=== PATIENT | male | born 1940 | race Caucasian/White ===

== ENCOUNTER → 2020-11-22 09:47 | Outpatient (BNVA) | payer MEDICARE, SELFPAY | PROVIDERS: PCP Internal Medicine; Visit Provider Internal Medicine Cardiovascular Disease | DX: I25.10 Atherosclerotic heart disease of native coronary artery without angina pectoris (principal); I10 Essential (primary) hypertension | CPT/HCPCS: 93005; 99212 ==

== ENCOUNTER 2020-11-29 09:42 | Outpatient (REF) | payer MEDICARE, SELFPAY ==
[2020-11-29 11:11] LABS: Cholesterol 119 mg/dL; HDL Cholesterol 38 mg/dL; LDL Cholesterol Calculated 66 mg/dl; Triglycerides 76 mg/dL
== END 2020-11-29 09:43 | disposition home or self-care (01) ==
LOC: HO.LAB 09:42
PROVIDERS: PCP Internal Medicine; Visit Provider Internal Medicine Cardiovascular Disease
DX: I25.10 Atherosclerotic heart disease of native coronary artery without angina pectoris (principal)
CPT/HCPCS: 36415; 80061

== ENCOUNTER → 2020-12-06 09:49 | Outpatient (BNVA) | payer MEDICARE, SELFPAY | PROVIDERS: PCP Internal Medicine; Visit Provider Internal Medicine Cardiovascular Disease ==

== ENCOUNTER → 2020-12-30 13:53 | Outpatient (REF) | payer MEDICARE, SELFPAY ==
--- NOTE | 2020-12-30 14:03 | CA_ITS ---
Transthoracic Echocardiogram Patient (Last, First, Middle): Paddy Hampton J Gender: Male Date of : 1940 Age: 80 Procedure Date: 12/30/2020 Procedure Type: Transthoracic Echocardiogram Location: OP Height: 172.72 cm Weight: 86.18 kg BSA: 2.00 m2 Heart Rate: bpm BP: 124 / 68 mmHg Cooker Cleaner: Referring MD: Ant Triana MD Symptoms: R01.1 - Cardiac murmur, unspecified Study Quality: Fair ECG Rhythm: Sinus Conclusions: - The left ventricular systolic function is normal. The visually estimated ejection fraction is between 55-60%. - The basal inferolateral segment is hypokinetic. The basal inferior, mid inferior, and basal inferoseptal segments are akinetic. - There is mild calcification of the aortic valve. - There is mild mitral annular calcification. There is mild mitral valve regurgitation. Findings Procedure Information Contrast agent, definity, is being given per protocol without apparent complications. Left Ventricle Normal left ventricular cavity size. There is mildly increased left ventricular wall thickness. The left ventricular systolic function is normal. The visually estimated ejection fraction is between 55-60%. There is evidence of regional wall motion abnormalities. Diastolic function is indeterminate on the basis of available data. Wall Motion Rest Echo Findings The basal inferolateral segment is hypokinetic. The basal inferior, mid inferior, and basal inferoseptal segments are akinetic. Right Ventricle Normal right ventricular cavity size and systolic function. Atria The left atrium is mildly dilated. The right atrium is normal in size. Aortic Valve There is mild calcification of the aortic valve. There is no aortic valve stenosis. There is no aortic valve regurgitation. Mitral Valve There is mild mitral annular calcification. There is mild mitral valve regurgitation. There is no mitral valve stenosis. Pulmonic Valve The pulmonic valve was not well visualized. Tricuspid Valve Normal tricuspid valve structure. There is trace tricuspid valve regurgitation. The pulmonary artery systolic pressure is normal. Great Vessels The aortic annulus, sinuses of valsalva, and asc aorta are normal in size. Venous The inferior vena cava is normal in size and collapses greater than 50% with inspiration. Pericardium/Pleural There is no evidence of pericardial effusion. Prior Study Comparison No significant change compared to prior study dated: 04/06/2019. Measurements 2D Linear Measurements IVSd: 1.21 0.6-0.9/0.6-1.0 cm LVIDd: 4.79 3.9-5.3/4.2-5.9 cm LVIDd Index: 2.40 2.4-3.2/2.2-3.1 cm/m2 LVIDs: 2.82 2.0-3.6 cm LVPWd: 1.21 0.7-1.1 cm Ao Root: 3.20 2.1-3.5 cm LA Diam: 4.70 2.7-3.8/3.0-4.0 cm LAIDs Index: 2.35 1.5-2.3 cm/m2 LV Mass: 275.50 67-162/88-224 g LV Mass Index: 137.75 43-95/49-115 g/m2 LVOT Diam: 2.00 3.0+(-)1.3 cm 2D Systolic Function EF 4C: 63.40 >55% EF 2C: 54.20 >55% EF BiP: 57.60 >55% Mitral Valve MV Pk E: 0.85 MV PK A: 1.08 MV Decel Time: 254.00 E/A: 0.80 PHT: 74.00 MVA PHT: 2.97 Decel Frio: 3.34 Aortic Valve AoV Pk Randy: 1.71 AoV Mn Randy: 1.17 AoV VTI: 0.36 AoV Pk Grad: 12.00 Aov Mn Grad: 6.00 ANTOINETTE Cont.VTI: 2.13 LVOT LVOT Pk Randy: 1.02 LVOT Mn Randy: 0.73 LVOT VTI: 0.24 LVOT Pk Grad: 4.00 LVOT Mn Grad: 2.00 LVOT Diam: 2.00 LVOT Area: 3.14 Diastolic Function MV Pk E: 0.85 MV Pk A: 1.08 E/A: 0.80 Tricuspid Valve TR Pk Randy: 1.82 TR Pk Grad: 13.00 RA Press: 3.00 RVSP: 16.00 Great Vessels Aorta Ao Root-2D: 3.20 2.0-3.7 cm Ao Asc: 3.50 2.1-3.4 cm Pulmonary Valve PV Pk Randy: 1.06 Peak PV Grad: 4.00 Updated in Other Vendor System with Status of Final Eben Colon MD electronically signed on 12/31/2020 9:37:52 AM with status of Final
== END ==
LOC: HO.CARD 13:53
PROVIDERS: PCP Physician Assistant; Visit Provider Internal Medicine Cardiovascular Disease
DX: R01.1 Cardiac murmur, unspecified (principal); I25.10 Atherosclerotic heart disease of native coronary artery without angina pectoris; I10 Essential (primary) hypertension
CPT/HCPCS: 93306; Q9957

== ENCOUNTER 2021-09-20 11:18 | Outpatient (REF) | payer MEDICARE, SELFPAY ==
[2021-09-20 12:16] LABS: Anion Gap 11 (12-20); Blood Urea Nitrogen 9 mg/dL (9-16); Carbon Dioxide 24 mmol/L (22-29); Chloride 108 mmol/L (96-108); Estimated Glomerular Filt Rate > 60; Glucose Fasting 100 mg/dL (60-99); Potassium 3.9 mmol/L (3.3-5.1); Sodium 139 mmol/L (135-145)
== END 2021-09-20 11:19 | disposition home or self-care (01) ==
LOC: HO.LAB 11:18
PROVIDERS: PCP Internal Medicine; Visit Provider Nurse Practitioner Family
DX: Z13.1 Encounter for screening for diabetes mellitus (principal)
CPT/HCPCS: 36415; 80048

== ENCOUNTER → 2021-11-23 10:11 | Outpatient (BNVA) | payer MEDICARE, SELFPAY | PROVIDERS: PCP Internal Medicine; Referring Provider Internal Medicine; Visit Provider Internal Medicine Cardiovascular Disease | DX: I25.10 Atherosclerotic heart disease of native coronary artery without angina pectoris (principal); R07.2 Precordial pain | CPT/HCPCS: 93005; 99212 ==

== ENCOUNTER → 2021-12-14 08:50 | Outpatient (REF) | payer MEDICARE, SELFPAY ==
--- NOTE | ~2021-12-14 | NM_ITS ---
Myocardial perfusion study Indication: Precordial chest pain to evaluate for myocardial ischemia Technique: The patient was brought in for a Lexiscan perfusion study on 12/14/2021. Patient performed low-level exercise and was injected 0.4 mg of Lexiscan intravenously. Within a minute of injection, 30 mCi of sestamibi was given intravenously. Images were obtained using the SPECT gamma camera interlaced with the gating device. Images were obtained in supine position. Resting perfusion study was performed on 12/15/2021. Patient was administered 30 mCi of sestamibi intravenously at rest. Images were then obtained in supine position. Images obtained with and without CT attenuation. Total DLP 113 mGy-cm. Images were processed with the software and compared side to side in short axis, horizontal long axis and vertical long axis views. Findings: The stress perfusion study showed non attenuated images show moderately reduced uptake in the distal anterior and mildly to moderately reduced uptake in the apex. Remainder of the LV myocardium is normally perfused. Attenuated corrected images show moderately reduced uptake in the distal anterior and apex of LV myocardium.. The gated study shows normal LV systolic function with calculated LVEF of 55%. LV cavity is mildly dilated size. The gated study shows normal systolic wall thickening and contraction of segments. Resting study shows improved uptake in the distal anterior and apex of the LV myocardium.. Gating at rest reveals normal systolic wall motion with ejection fraction at 57%. The findings are consistent with mild reversibility in the distal. NM/NM rosemary perf SPECT rest & str Impression: 1. Myocardial perfusion imaging study shows small area of mild intensity distal anterior ischemia in distal LAD territory 2. Gated LVEF is 55% 3. Transient ischemic dilatation present and mild EKG is nondiagnostic for ischemia
--- NOTE | 2021-12-14 08:53 | CA_ITS ---
Acquisition Time: 2021-12-14 09:06:56 Total Exercise Time: 00:02:00 Test Indications: CP Medications: SEE CHART Protocol: LEXISCAN Max HR: 080 BPM 57% of Pred: 140 BPM Max BP: 168/070 mmHG Max Work Load: 1.0 METS Pharmacological stress test with Lexiscan injection, while sitting and kicking his legs, without anginal symptoms, with isolated PVCs, with normotensive response to injection, with nondiagnostic EKG for ischemia. In recovery he reported feeling foggy in the head which was treated with Aminophylline 75mg IVP to reverse Lexiscan with resolution of symptom. Nuclear images pending. Test reviewed with Dr Toledo Referred By: Ant Triana Overread By: CROW NGUYEN
== END ==
LOC: HO.CARD 08:50
PROVIDERS: Visit Provider Internal Medicine Cardiovascular Disease
DX: R07.2 Precordial pain (principal); I25.10 Atherosclerotic heart disease of native coronary artery without angina pectoris
CPT/HCPCS: 78452; 93017; A9500; J0280; J2785

== ENCOUNTER 2021-12-27 09:24 | Outpatient (REF) | payer MEDICARE, SELFPAY ==
[2021-12-27 10:19] LABS: Hematocrit 39.9 % (42.0-52.0); Mean Corpuscular HGB Conc 35.1 g/dl (31.0-36.0); Mean Corpuscular Hemoglobin 34.1 pg (27.0-33.0); Mean Corpuscular Volume 97.3 fL (80.0-98.0); Platelet Count 119 X10*3/uL (160-400); Red Cell Distribution Width 13.5 % (11.0-16.0)
[2021-12-27 11:00] LABS: Appearance Urine CLEAR; Color Urine YELLOW; Glucose Urine UA NEG (NEG); Leukocyte Esterase Urine NEG (NEG); Nitrite Urine NEG (NEG); Urine Blood TRACE (NEG); Urine Ketones NEG (NEG); Urine Protein NEG (NEG-TRACE)
[2021-12-27 11:05] LABS: Alanine Aminotransferase 15 U/L (0-40); Albumin Level 3.9 g/dL (3.5-5.0); Alkaline Phosphatase 70 U/L (39-117); Anion Gap 10 (12-20); Aspartate Amino Transferase 28 U/L (5-37); Bilirubin Direct 0.5 mg/dL (0.0-0.5); Bilirubin Total 1.2 mg/dL (0.0-1.0); Blood Urea Nitrogen 14 mg/dL (9-16); Carbon Dioxide 25 mmol/L (22-29); Chloride 107 mmol/L (96-108); Cholesterol 150 mg/dL; Estimated Glomerular Filt Rate > 60; Glucose Random 97 mg/dL (60-115); HDL Cholesterol 56 mg/dL; LDL Cholesterol Calculated 82 mg/dl; Potassium 3.9 mmol/L (3.3-5.1); Sodium 138 mmol/L (135-145); Total Protein 7.7 g/dL (6.5-8.0); Triglycerides 61 mg/dL
[2021-12-27 11:11] LABS: Thyroid Stimulating Hormone 3.15 uIU/mL (0.32-4.0)
[2021-12-27 11:20] LABS: Mucus Urine 1+ /LPF; Squamous Epithelial Cell Urine 1+ /LPF
[2021-12-27 11:21] LABS: RBC Urine 0-2 /HPF (0); WBC Urine 0 /HPF (0-4)
== END 2021-12-27 09:25 | disposition home or self-care (01) ==
LOC: HO.LAB 09:24
PROVIDERS: Internal Medicine Cardiovascular Disease; PCP Internal Medicine; Visit Provider Internal Medicine
DX: I25.10 Atherosclerotic heart disease of native coronary artery without angina pectoris (principal); I10 Essential (primary) hypertension
CPT/HCPCS: 36415; 80048; 80061; 80076; 81001; 81003; 84443; 85027

== ENCOUNTER → 2022-01-05 10:20 | Outpatient (BNVA) | payer MEDICARE, SELFPAY | PROVIDERS: PCP Internal Medicine; Visit Provider Internal Medicine Cardiovascular Disease | DX: I25.10 Atherosclerotic heart disease of native coronary artery without angina pectoris (principal); I25.2 Old myocardial infarction; Z79.82 Long term (current) use of aspirin; Z79.899 Other long term (current) drug therapy | CPT/HCPCS: 99212 ==

== ENCOUNTER 2022-11-07 14:33 | Outpatient (REF) | payer MEDICARE, SELFPAY ==
[2022-11-07 15:51] LABS: Estimated Average Glucose 82 mg/dL; Hemoglobin 13.5 g/dl (14.0-18.0); Hemoglobin A1c % 4.5 %; Mean Corpuscular HGB Conc 34.6 g/dl (31.0-36.0); Mean Corpuscular Hemoglobin 33.8 pg (27.0-33.0); Mean Corpuscular Volume 97.5 fL (80.0-98.0); Mean Platelet Volume 9.3 fL (9.4-12.4); Platelet Count 126 X10*3/uL (160-400); Red Cell Distribution Width 13.7 % (11.0-16.0); White Blood Count 6.6 X10*3/uL (4.8-10.8)
[2022-11-07 16:21] LABS: Alanine Aminotransferase 17 U/L (0-40); Albumin Level 3.8 g/dL (3.5-5.0); Alkaline Phosphatase 70 U/L (39-117); Anion Gap 14 (12-20); Aspartate Amino Transferase 29 U/L (5-37); Bilirubin Direct 0.5 mg/dL (0.0-0.5); Bilirubin Total 1.5 mg/dL (0.0-1.0); Blood Urea Nitrogen 12 mg/dL (9-16); Calcium 8.9 mg/dL (8.4-10.2); Carbon Dioxide 26 mmol/L (22-29); Chloride 107 mmol/L (96-108); Cholesterol 151 mg/dL; Estimated Glomerular Filt Rate > 60; Glucose Random 118 mg/dL (60-115); HDL Cholesterol 60 mg/dL; LDL Cholesterol Calculated 76 mg/dl; Potassium 3.8 mmol/L (3.3-5.1); Sodium 143 mmol/L (135-145); Total Protein 7.4 g/dL (6.5-8.0); Triglycerides 78 mg/dL
[2022-11-07 16:37] LABS: Thyroid Stimulating Hormone 1.95 uIU/mL (0.32-4.0)
== END 2022-11-07 14:34 | disposition home or self-care (01) ==
LOC: HO.LAB 14:33
PROVIDERS: PCP Internal Medicine; Visit Provider Internal Medicine
DX: Z13.1 Encounter for screening for diabetes mellitus (principal); I10 Essential (primary) hypertension; I25.10 Atherosclerotic heart disease of native coronary artery without angina pectoris
CPT/HCPCS: 36415; 80048; 80061; 80076; 83036; 84443; 85027

== ENCOUNTER → 2022-11-26 10:22 | Outpatient (BNVA) | payer MEDICARE, SELFPAY | PROVIDERS: PCP Internal Medicine; Referring Provider Internal Medicine; Visit Provider Internal Medicine Cardiovascular Disease | DX: I25.10 Atherosclerotic heart disease of native coronary artery without angina pectoris (principal); I10 Essential (primary) hypertension | CPT/HCPCS: 93005; 99212 ==

== ENCOUNTER 2023-05-02 09:47 | Outpatient (AMB) | payer MEDICARE, SELFPAY ==
--- NOTE | 2023-05-02 10:01 | MHC.PC.OV ---
Vital Signs 05/02/23 10:02 Height 5 ft 7 in Weight 192 lb 6 oz BMI 30.1 BP 140/70 H Blood Pressure Location Lt brachial Position Sitting Pulse 67 Pulse Source Pulse Oximeter Pulse Oximetry (%) 94 Oxygen Delivery Method Room Air Intake Visit Reasons: 6mth f/u Intake Note: Patient is here to follow up on CAD, HTN. Recreation Establishment Manager Required: No Office Copy Selector: Not Required per policy Accompanied by: Self / Same As Patient Allergies Penicillins [PENICILLINS] Adverse Reaction (Unknown, Verified 05/19/23 20:10) STOMACH UPSET Medication List - Last Reconciled 05/19/23 by Moses Felton MD amlodipine 2.5 mg PO DAILY aspirin 81 mg PO DAILY atorvastatin 20 mg PO DAILY enalapril maleate 10 mg PO DAILY hydrochlorothiazide 25 mg PO QAM Tobacco use date assessed: 05/02/23 Fall risk assessment: No Falls in past year Last assessed Fall Risk: 05/02/23 Dental Screening Dental Screen Date: 05/02/23 Did you have a dental visit in the last 12 months?: Yes Did you have a dental problem in the last 6 months where you did not have access to dental care?: No Was dental information given to patient?: Patient has dentist HPI 6mth f/u HPI Details 83-year-old male presents to the office to discuss his medical conditions. Patient is reporting he is in baseline state of health. Compliant with all medications and reporting no side effects. Able to function and do all activities of daily living [facility] Medical History CAD (coronary artery disease) Essential (primary) hypertension Screening for diabetes mellitus Surgical History History of colonoscopy Stented coronary artery Family History Father No problems noted. Mother Hypertension Social History Housing: House Alcohol intake: current Alcohol intake frequency: holidays/special occasions only Patient Tobacco Use Status: Former Tobacco user e-Cigarette/Vaping Use: Never Used Second Hand Smoke Exposure: Yes service: No Current occupational status: retired Cognitive needs: Yes (cane) Hearing needs: No Vision needs: Yes (Glasses) Questionnaire Thrive Questionnaire Date Thrive assessed: 10/30/22 RODRIGO-7 AMB Questionnaire RODRIGO-7 Date RODRIGO - 7 assessed: 10/30/22 Source: Developed by Drs. Balta Goff, Eboni Molian, Segundo Quezada and colleagues, with an educational eric from [employer]. Physical exam (Primary Care) Vital Signs: Last Vital Signs Pulse 67 05/02/23 10:02 BP 140/70 H 05/02/23 10:02 Pulse Ox 94 05/02/23 10:02 Oxygen Delivery Method Room Air 05/02/23 10:02 BMI result Body Mass Index 30.1 Tobacco/Smoking Status: Tobacco use Status Tobacco use date assessed 05/02/23 05/02/23 10:08 Patient Tobacco Use Status Former Tobacco user 05/02/23 10:08 e-Cigarette/Vaping Use Never Used 05/02/23 10:08 Thrive Assessment: Date of Thrive Assessment Date Thrive assessed 10/30/22 05/02/23 10:08 Const General: cooperative, healthy appearing and comfortable HENMT Head: Yes normal to inspection and Yes atraumatic Eyes General: appearance normal, both eyes and all related structures Neck Neck: Yes normal visual inspection and Yes full ROM Chest Chest palpation & inspection: normal inspection of the chest Resp Effort & Inspection: normal respiratory effort Auscultation: clear to auscultation bilaterally Cardio Jugular venous distension: no JVD Palpation: normal PMI Rate: regular rate Heart sounds: S1 normal heart sound present and S2 normal heart sound present GI Palpation (GI): Soft to palpation and No hepatosplenomegaly present Extrem General: Yes normal to inspection and Yes full ROM Assessment and Plan Assessment & Plan (1) CAD (coronary artery disease): Code(s): I25.10 - Atherosclerotic heart disease of [place] coronary artery without angina pectoris Plan: Condition is stable. Continue current medications. (2) Essential (primary) hypertension: Code(s): I10 - Essential (primary) hypertension Plan: Blood pressure is stable. 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 Coding Level of Care Code Est Pt Level 3 (93959) Diagnoses CAD (coronary artery disease) I25.10 Essential (primary) hypertension I10 Myeloid dysplasia D46.9
[2023-05-02 10:02] VITALS: BP 140/70; PULSE 67; O2SAT 94; BMI 30.1
== END 2023-05-02 10:35 | disposition home or self-care (01) ==
PROVIDERS: PCP Internal Medicine; Visit Provider Internal Medicine
DX: I25.10 Atherosclerotic heart disease of native coronary artery without angina pectoris (principal); I10 Essential (primary) hypertension; D46.9 Myelodysplastic syndrome, unspecified
CPT/HCPCS: 99213

== ENCOUNTER 2023-11-07 09:44 | Outpatient (AMB) | payer MEDICARE, SELFPAY ==
--- NOTE | 2023-11-07 09:49 | A.OFFPC_ITS ---
Vital Signs 11/07/23 09:52 Height 5 ft 7 in Weight 189 lb BMI 29.6 BP 120/62 Blood Pressure Location Lt brachial Position Sitting Pulse 67 Pulse Source Pulse Oximeter Pulse Oximetry (%) 97 Oxygen Delivery Method Room Air Intake Visit Reasons: 6mth f/u - see comments Intake Note: Patient is here to follow up on CAD, HTN. Manager Test Required: No Pediatric Physical Therapy Assistant: Not Required per policy Accompanied by: Self / Same As Patient Allergies Penicillins [PENICILLINS] Adverse Reaction (Unknown, Verified 11/07/23 09:51) STOMACH UPSET Tobacco use date assessed: 11/07/23 Fall risk assessment: No Falls in past year Last assessed Fall Risk: 11/07/23 Dental Screening Dental Screen Date: 11/07/23 Did you have a dental visit in the last 12 months?: Yes Did you have a dental problem in the last 6 months where you did not have access to dental care?: No Was dental information given to patient?: Patient has dentist HPI 6mth f/u - see comments HPI Details 83 yr old male presents to the office fo r an annual physical. Patient lives with his and son. He is able to live independently and drive. Requesting refills on his medications. Continues to do all the finances at home. No urinary symptoms. [facility] Medical History CAD (coronary artery disease) Essential (primary) hypertension Screening for diabetes mellitus Surgical History History of colonoscopy Stented coronary artery Family History Father No problems noted. Mother Hypertension Social History Housing: House Alcohol intake: current Alcohol intake frequency: holidays/special occasions only Patient Tobacco Use Status: Former Tobacco user e-Cigarette/Vaping Use: Never Used Second Hand Smoke Exposure: Yes service: No Current occupational status: retired Cognitive needs: Yes (cane) Hearing needs: No Vision needs: Yes (Glasses) Questionnaire PHQ-9 Over the last 2 weeks, how often have you been bothered by any of the following problems? 1. Little interest or pleasure in doing things: not at all 2. Feeling down, depressed, or hopeless: not at all 3. Trouble falling or staying asleep, or sleeping too much: not at all 4. Feeling tired or having little energy: not at all 5. Poor appetite or overeating: not at all 6. Feeling bad about yourself - or that you are a failure or have let yourself or your family down: not at all 7. Trouble concentrating on things, such as reading the newspaper or watching television: not at all 8. Moving or speaking so slowly that other people could have noticed. Or the opposite - being so fidgety or restless that you have been moving around a lot more than usual: not at all 9. Thoughts that you would be better off or of hurting yourself in some way: not at all Total score: 0 Depression Screening Interpretation: Negative Depression Screening Done: Yes Source: Developed by Drs. Balta Goff, Eboni Molina, Segundo Quezada and colleagues, with an educational eric from [employer]. Thrive Questionnaire Date Thrive assessed: 11/07/23 I am a: Patient What is your living situation today?: I have a steady place to live Within the past 12 months, did the food you bought not last and you didn't have the money to get more?: Never true Within the past 12 months, did you worry whether your food would run out before you got money to buy more?: Never true Do you have trouble paying for medicines?: No Do you have trouble getting transportation to medical appointments?: No Do you have trouble paying your heating and electricity bill?: No Do you have trouble taking care of your child, family member or friend?: No Do you have trouble with day-to-day activities such as bathing, preparing meals, shopping, managing finances, etc.?: No Are you currently unemployed and looking for a job?: No Are you interested in more education?: No Currently or been in a relationship where the following occur: no concerns reported THRIVE Score: 0 AUDIT C Alcohol Use Questionnaire (AUDIT-C) 1. How often do you have a drink containing alcohol?: Monthly or less 2. How many drinks containing alcohol do you have on a typical day when you are drinking?: 1 or 2 Total Score: 1 RODRIGO-7 AMB Questionnaire RODRIGO-7 Date RODRIGO - 7 assessed: 11/07/23 Feeling nervous, anxious, or on edge: 0 = Not at all Not being able to stop or control worryin = Not at all Worrying too much about different things: 0 = Not at all Trouble relaxin = Not at all Being so restless that it is hard to sit still: 0 = Not at all Becoming easily annoyed or irritable: 0 = Not at all Feeling afraid as if something awful might happen: 0 = Not at all Total RODRIGO-7 score (0-4 normal; 5-9 mild; 10-14 moderate; 15-21 severe): 0 Source: Developed by Drs. Balta Goff, Eboni Molina, Segundo Quezada and colleagues, with an educational eric from [employer]. Physical exam (Primary Care) Vital Signs: Last Vital Signs Pulse 67 11/07/23 09:52 BP 120/62 11/07/23 09:52 Pulse Ox 97 11/07/23 09:52 Oxygen Delivery Method Room Air 11/07/23 09:52 BMI result Body Mass Index 29.6 Tobacco/Smoking Status: Tobacco use Status Tobacco use date assessed 11/07/23 11/07/23 09:56 Patient Tobacco Use Status Former Tobacco user 11/07/23 09:56 e-Cigarette/Vaping Use Never Used 11/07/23 09:56 PHQ-9: PHQ-9 Score PHQ-9: Total score 0 11/07/23 09:56 Depression Screening Interpretation: Negative Thrive Assessment: Date of Thrive Assessment Date Thrive assessed 11/07/23 11/07/23 09:56 Currently or been in a relationship where the following occur: no concerns reported Advance Care Planning discussion: Exists, not on file Date of discussion: 11/07/23 Who was present: Patient Forms completed: Health Care Proxy Actual minutes spent: 5 Const General: cooperative and healthy appearing Nutritional Appearance: well nourished Orientation/consciousness: patient oriented x3 Limitations: no limitations HENMT Head: Yes normal to inspection Eyes General: appearance normal, both eyes and all related structures Neck Neck: Yes normal visual inspection Chest Chest palpation & inspection: normal palpation of entire chest wall Resp Effort & Inspection: normal respiratory effort Neuro General: patient oriented x3 Assessment and Plan Assessment & Plan (1) Myeloid dysplasia: Code(s): D46.9 - Myelodysplastic syndrome, unspecified Plan: Patient sees a student loan counselor. (2) CAD (coronary artery disease): Code(s): I25.10 - Atherosclerotic heart disease of [place] coronary artery without angina pectoris Plan: Condition is stable. (3) Essential (primary) hypertension: Code(s): I10 - Essential (primary) hypertension Plan: Blood pressure is in range. Continue current medications. (4) Annual physical exam: Code(s): Z00.00 - Encounter for general adult medical examination without abnormal findings Orders: Orders Liver Panel Today D46.9 - Myelodysplastic syndrome, unspecified, I10 - Essential (primary) hypertension, I25.10 - Atherosclerotic heart disease of [place] coronary artery without angina pectoris UA and rflx microscopic Today D46.9 - Myelodysplastic syndrome, unspecified, I10 - Essential (primary) hypertension, I25.10 - Atherosclerotic heart disease of [place] coronary artery without angina pectoris Basic Metabolic Panel Today D46.9 - Myelodysplastic syndrome, unspecified, I10 - Essential (primary) hypertension, I25.10 - Atherosclerotic heart disease of [place] coronary artery without angina pectoris Complete Blood Count no Diff Today D46.9 - Myelodysplastic syndrome, unspecified, I10 - Essential (primary) hypertension, I25.10 - Atherosclerotic heart disease of [place] coronary artery without angina pectoris Thyroid Stimulating Hormone Today D46.9 - Myelodysplastic syndrome, unspecified, I10 - Essential (primary) hypertension, I25.10 - Atherosclerotic heart disease of [place] coronary artery without angina pectoris Lipid Panel Today D46.9 - Myelodysplastic syndrome, unspecified, I10 - Essential (primary) hypertension, I25.10 - Atherosclerotic heart disease of [place] coronary artery without angina pectoris Medications: Refilled enalapril maleate 10 mg PO DAILY 90 tabs 1RF Coding Level of Care Code Est Pt Prev Care >65y(29938) Diagnoses Myeloid dysplasia D46.9 CAD (coronary artery disease) I25.10 Essential (primary) hypertension I10 Annual physical exam Z00.00 Additional Codes Vital Signs *Quality* - Advance Care Planning discussion: Exists, not on file ([id number])
[2023-11-07 09:52] VITALS: BP 120/62; PULSE 67; O2SAT 97; BMI 29.6
== END 2023-11-07 10:27 | disposition home or self-care (01) ==
PROVIDERS: PCP Internal Medicine; Visit Provider Internal Medicine
DX: D46.9 Myelodysplastic syndrome, unspecified (principal); I25.10 Atherosclerotic heart disease of native coronary artery without angina pectoris; I10 Essential (primary) hypertension; Z00.00 Encounter for general adult medical examination without abnormal findings
CPT/HCPCS: 1123F; 99397

== ENCOUNTER 2023-11-08 12:08 | Outpatient (REF) | payer MEDICARE, SELFPAY ==
[2023-11-08 13:28] LABS: Hematocrit 37.2 % (42.0-52.0); Hemoglobin 13.1 g/dl (14.0-18.0); Mean Corpuscular HGB Conc 35.2 g/dl (31.0-36.0); Mean Corpuscular Hemoglobin 33.7 pg (27.0-33.0); Mean Corpuscular Volume 95.6 fL (80.0-98.0); Mean Platelet Volume 9.1 fL (9.4-12.4); Platelet Count 109 X10*3/uL (160-400); Red Blood Count 3.89 X10*6/uL (4.60-5.80); Red Cell Distribution Width 13.9 % (11.0-16.0); White Blood Count 4.6 X10*3/uL (4.8-10.8)
[2023-11-08 14:12] LABS: Alanine Aminotransferase 19 U/L (0-40); Albumin Level 3.8 g/dL (3.5-5.0); Alkaline Phosphatase 75 U/L (39-117); Anion Gap 10 (12-20); Aspartate Amino Transferase 34 U/L (5-37); Bilirubin Direct 0.5 mg/dL (0.0-0.5); Bilirubin Total 1.4 mg/dL (0.0-1.0); Blood Urea Nitrogen 10 mg/dL (9-16); Calcium 9.1 mg/dL (8.4-10.2); Carbon Dioxide 27 mmol/L (22-29); Chloride 108 mmol/L (96-108); Cholesterol 128 mg/dL (<200); Estimated Glomerular Filt Rate > 60; Glucose Random 109 mg/dL (60-115); HDL Cholesterol 61 mg/dL (>40); LDL Cholesterol Calculated 56 mg/dL (<100); Potassium 3.8 mmol/L (3.3-5.1); Sodium 141 mmol/L (135-145); Total Protein 7.5 g/dL (6.5-8.0); Triglycerides 59 mg/dL (<150)
[2023-11-08 14:13] LABS: Thyroid Stimulating Hormone 2.13 uIU/mL (0.32-4.0)
[2023-11-08 18:21] LABS: Appearance Urine Clear; Color Urine Yellow; Glucose Urine UA Negative (Negative); Leukocyte Esterase Urine Small (1+) (Negative); Nitrite Urine Negative (Negative); Specific Gravity - Urine 1.015 (1.005-1.025); UMIC TRIGGER UA YES; Urine Blood Negative (Negative); Urine Ketones Negative (Negative); Urine Protein Negative (Neg-Trace)
[2023-11-08 19:00] LABS: Bacteria Urine None Seen (None Seen); Hyaline Casts Urine 0-2 /LPF (0-2); RBC Urine 0-2 /HPF (0-2); Squamous Epithelial Cell Urine 0-2 /HPF (0-2); WBC Urine 0-5 /HPF (0-5)
== END 2023-11-08 12:09 | disposition home or self-care (01) ==
LOC: HO.LAB 12:08
PROVIDERS: PCP Internal Medicine; Visit Provider Internal Medicine
DX: D64.9 Anemia, unspecified (principal); I25.10 Atherosclerotic heart disease of native coronary artery without angina pectoris; I10 Essential (primary) hypertension
CPT/HCPCS: 36415; 80048; 80061; 80076; 81001; 84443; 85027

== ENCOUNTER → 2023-11-12 12:46 | Outpatient (REF) | payer MEDICARE, SELFPAY ==
--- NOTE | 2023-11-12 12:49 | CA_ITS ---
Transthoracic Echocardiogram Patient (Last, First, Middle): Paddy Hampton J Gender: Male Date of : 1940 Age: 83 Procedure Date: 11/12/2023 Procedure Type: Transthoracic Echocardiogram Location: OP Height: 172.72 cm Weight: 86.18 kg BSA: 2.00 m2 Heart Rate: bpm BP: 140 / 60 mmHg Loom Changeover Operator: TO Referring MD: Ant Triana MD Medical Transcription: Ant Triana MD Symptoms: I25.10 - Atherosclerotic heart disease of [place] coronary artery without... Study Quality: Fair/Contrast ECG Rhythm: Sinus Conclusions: - 1. Normal LV ejection fraction 55-60% with impaired relaxation filling pattern 2. Mildly dilated left atrium 3. Calcific aortic valve changes noted with early mild aortic stenosis 4. Mildly dilated ascending aorta at 3.7 cm 5. No gross pericardial effusion Findings Left Ventricle Normal left ventricular size, thickness, and systolic function. The visually estimated ejection fraction is between 55-60%. Spectral Doppler is indicative of an impaired relaxation filling pattern. There is mild septal asymmetric hypertrophy. Wall Motion Rest Echo Findings The basal inferior and basal inferoseptal segments are akinetic. All other scored wall segments showed normal motion. Right Ventricle The right ventricle was not well visualized. Atria The left atrium is mildly dilated. There is no evidence of interatrial shunt. The right atrium was not well visualized. Aortic Valve There is mild calcification of the aortic valve. There is no aortic valve stenosis. The peak aortic gradient is 15 mmHg.The mean gradient is 7 mmHg. The aortic valve area is 2.31 cm2. There is no aortic valve regurgitation. Mitral Valve There is mild anterior and posterior mitral leaflet thickening. There is mild mitral annular calcification. There is trace mitral valve regurgitation. There is no mitral valve stenosis. Pulmonic Valve The pulmonic valve is likely normal. Tricuspid Valve Likely normal tricuspid valve structure and function. Tricuspid regurgitation envelope is inadequate for calculation of right ventricular systolic pressure. Great Vessels The pulmonary artery was not well visualized. There is mild dilatation of the ascending aorta measuring 3.70 cm. Venous The inferior vena cava was not well visualized. Pericardium/Pleural There is no evidence of pericardial effusion. Prior Study Comparison No significant change compared to prior study dated: 12/30/2020. Measurements 2D Linear Measurements IVSd: 1.41 0.6-0.9/0.6-1.0 cm LVIDd: 4.27 3.9-5.3/4.2-5.9 cm LVIDd Index: 2.14 2.4-3.2/2.2-3.1 cm/m2 LVIDs: 3.02 2.0-3.6 cm LVPWd: 0.90 0.7-1.1 cm LA Diam: 4.30 2.7-3.8/3.0-4.0 cm LAIDs Index: 2.15 1.5-2.3 cm/m2 LV Mass: 214.91 67-162/88-224 g LV Mass Index: 107.46 43-95/49-115 g/m2 LVOT Diam: 2.30 3.0+(-)1.3 cm 2D Systolic Function EF 4C: 62.50 >55% EF 2C: 53.90 >55% EF BiP: 58.60 >55% Mitral Valve MV VTI: 0.38 MV Pk Randy: 1.28 MV Mn Randy: 0.74 MV Pk Grad: 7.00 MV Mn Grad: 2.00 MV Pk E: 0.75 MV PK A: 0.97 MV Decel Time: 241.00 E/A: 0.80 E'Lateral: 6.09 E'Medial: 3.92 E/E' Med: 19.00 E/E' Lat: 12.20 PHT: 71.00 MVA PHT: 3.10 MVA Continuity: 2.48 Decel Barron: 3.09 Aortic Valve AoV Pk Randy: 1.92 AoV Mn Randy: 1.23 AoV VTI: 0.40 AoV Pk Grad: 15.00 Aov Mn Grad: 7.00 ANTOINETTE Cont.VTI: 2.31 LVOT LVOT Pk Randy: 0.95 LVOT Mn Randy: 0.62 LVOT VTI: 0.23 LVOT Pk Grad: 4.00 LVOT Mn Grad: 2.00 LVOT Diam: 2.30 LVOT Area: 4.15 Diastolic Function MV Pk E: 0.75 MV Pk A: 0.97 E/A: 0.80 E'Medial: 3.92 E/E' Med: 19.00 E' Laterial: 6.09 E/E' Lat: 12.20 Right Ventricle TAPSE (mm): 26.40 TVS' Randy: 14.50 Tricuspid Valve TR Pk Randy: 1.52 TR Pk Grad: 9.00 Great Vessels Aorta Sinus of Valsalva: 3.75 2.0-3.5 cm Ao Asc: 3.70 2.1-3.4 cm Ao Arch: 3.70 Updated in Other Vendor System with Status of Final Ant Triana MD electronically signed on 11/13/2023 4:30:35 PM with status of Final
== END ==
LOC: HO.CARD 12:46
PROVIDERS: PCP Internal Medicine; Visit Provider Internal Medicine Cardiovascular Disease
DX: I25.10 Atherosclerotic heart disease of native coronary artery without angina pectoris (principal)
CPT/HCPCS: 93306; Q9957

== ENCOUNTER → 2023-11-12 12:49 | Outpatient (BNV) | payer MEDICARE, SELFPAY | PROVIDERS: PCP Internal Medicine; Visit Provider Internal Medicine Cardiovascular Disease | DX: I25.10 Atherosclerotic heart disease of native coronary artery without angina pectoris (principal) | CPT/HCPCS: 93306 ==

== ENCOUNTER 2023-11-25 10:23 | Outpatient (AMB) | payer MEDICARE, SELFPAY ==
[2023-11-25 10:25] VITALS: BP 130/74; PULSE 70; BMI 27.9
--- NOTE | 2023-11-25 10:25 | A.OFFVIS_ITS ---
Intake Vital Signs 11/25/23 10:25 Height 5 ft 7 in Weight 177 lb 14.609 oz BMI 27.9 BP 130/74 Blood Pressure Location Lt brachial Position Sitting Pulse 70 Pulse Source Monitor Intake Visit Reasons: 1 yr f/u after echo Intake Note: 1 year follow up with EKG Allergies Penicillins [PENICILLINS] Adverse Reaction (Unknown, Verified 11/25/23 10:31) STOMACH UPSET Medication List - Last Reconciled 11/25/23 by Ant Triana MD amlodipine 2.5 mg PO DAILY aspirin 81 mg PO DAILY atorvastatin 20 mg PO DAILY enalapril maleate 10 mg PO DAILY hydrochlorothiazide 25 mg PO QAM HPI HPI Comments History of Present Illness Details Paddy comes for follow-up, accompanied by his . Overall he has been doing well. No symptoms of angina or shortness of breath. He said he has been slowing down due to stiffness in his muscles and joints. Otherwise he denies any symptoms of palpitations. Blood pressure at home are generally well controlled. His last LDL is well optimized. Denies any heart failure symptoms. No lightheadedness, syncope, prolonged palpitations. [facility] Medical History Screening for diabetes mellitus CAD (coronary artery disease) Essential (primary) hypertension Surgical History History of colonoscopy Stented coronary artery Family History Father No problems noted. Mother Hypertension Social History Housing: House Alcohol intake: current Alcohol intake frequency: holidays/special occasions only Patient Tobacco Use Status: Former Tobacco user e-Cigarette/Vaping Use: Never Used Second Hand Smoke Exposure: Yes service: No Current occupational status: retired Cognitive needs: Yes (cane) Hearing needs: No Vision needs: Yes (Glasses) Review of Systems Const Denies weakness ENT Denies dizziness Card Denies chest pain, Denies chest pain with activity, Denies syncope, Denies rapid heart rate, Denies pedal edema, Denies edema, Denies leg edema, Denies lightheadedness, Denies palpitations, Denies dyspnea, Denies dyspnea on exertion and Denies orthopnea Resp Denies cough, Denies dyspnea and Denies dyspnea on exertion GI Denies hematochezia and Denies change in stool character Musc Denies abnormal gait, Denies muscle cramps, Denies muscle weakness, Denies numbness, Denies radiating pain into limb and Denies tingling Neuro Denies abnormal gait, Denies dizziness, Denies syncope, Denies numbness, Denies tingling and Denies weakness Endo Denies palpitations Physical Exam Vital Signs: Last Vital Signs Pulse 70 11/25/23 10:25 BP 130/74 11/25/23 10:25 BMI result Body Mass Index 27.9 Const General: cooperative, comfortable, no acute distress, alert, awake and well groomed Nutritional Appearance: overweight Orientation/consciousness: patient oriented x3 Limitations: no limitations Neck Neck: Yes trachea midline, Yes supple and Yes no JVD Carotids: no bruits Chest Chest palpation & inspection: normal inspection of the chest Resp Effort & Inspection: normal respiratory effort Auscultation: clear to auscultation bilaterally Cardio Jugular venous distension: no JVD Palpation: normal PMI Rate: regular rate Rhythm: regular rhythm Heart sounds: S1 normal heart sound present, S2 normal heart sound present, Murmur heart sound present systolic early and Other heart sounds present (S4 present) Skin General skin exam: no rashes or lesions noted Neuro General: patient oriented x3 and no focal motor deficits Extrem General: Yes no clubbing, cyanosis or edema Psych Appearance: grossly normal Office Procedures EKG Details: EKG shows normal sinus rhythm with small Q-waves in inferior leads as well as poor R-wave progression most suggestive of apical infarct [id number], Complete Assessment & Plan Assessment & Plan (1) CAD (coronary artery disease): Code(s): I25.10 - Atherosclerotic heart disease of [place] coronary artery without angina pectoris Plan: CAD stable with no new symptoms at this point time. No further workup is indicated. Continue aggressive medical therapy importance of aggressive medical therapy was discussed. Continue low-dose aspirin therapy for life. LDL is well optimized on high-intensity statin therapy blood pressure is well optimized. Encouraged to continue to participate in physical activity as tolerated. (2) Essential (primary) hypertension: Code(s): I10 - Essential (primary) hypertension Plan: High blood pressure is currently well optimized on current therapy. Importance of good blood pressure control was discussed. Low-salt diet was discussed advised to monitor blood pressure at home maintain a log. Goal blood pressure less than 130/84. (3) Aortic stenosis: Code(s): I35.0 - Nonrheumatic aortic (valve) stenosis Plan: Early mild aortic stenosis without any symptoms. No interventions required. Follow-up echocardiogram in 2 years time. Continue aggressive vascular risk factor modification as in 1. Follow up in the clinic in 1 year's time, sooner p.r.n.. Thank you for allowing me to partake in his care Coding Level of Care Code Est Pt Level 4 (10539) Diagnoses CAD (coronary artery disease) I25.10 Essential (primary) hypertension I10 Aortic stenosis I35.0 CPT Codes EKG - CPT: 73027-[id number], Complete ([id number])
== END 2023-11-25 10:51 | disposition home or self-care (01) ==
PROVIDERS: Visit Provider Internal Medicine Cardiovascular Disease
DX: I25.10 Atherosclerotic heart disease of native coronary artery without angina pectoris (principal); I10 Essential (primary) hypertension; I35.0 Nonrheumatic aortic (valve) stenosis
CPT/HCPCS: 93010; 99214

== ENCOUNTER → 2023-11-25 10:23 | Outpatient (BNVA) | payer MEDICARE, SELFPAY | PROVIDERS: Visit Provider Internal Medicine Cardiovascular Disease | DX: I25.10 Atherosclerotic heart disease of native coronary artery without angina pectoris (principal); I10 Essential (primary) hypertension; I35.0 Nonrheumatic aortic (valve) stenosis | CPT/HCPCS: 93005; 99212 ==

== ENCOUNTER 2024-02-27 14:07 | Outpatient (AMB) | payer MEDICARE, SELFPAY ==
--- NOTE | 2024-02-27 14:11 | MHC.PC.OV ---
Vital Signs 02/27/24 14:12 Height 5 ft 7 in Weight 187 lb 8 oz BMI 29.4 BP 120/64 Blood Pressure Location Lt brachial Position Sitting Pulse 68 Pulse Source Pulse Oximeter Pulse Oximetry (%) 96 Oxygen Delivery Method Room Air Intake Visit Reasons: 3mth f/u Intake Note: Patient is here to follow up on HTN, CAD. Insurance Marketing Rep Required: No Card Stripper: Present Accompanied by: Spouse Allergies Penicillins [PENICILLINS] Adverse Reaction (Unknown, Verified 02/27/24 14:12) STOMACH UPSET Tobacco use date assessed: 02/27/24 Fall risk assessment: No Falls in past year Last assessed Fall Risk: 02/27/24 Dental Screening Dental Screen Date: 11/07/23 HPI 3mth f/u HPI Details 83-year-old male presents to the office to discuss his chronic medical conditions. He is compliant with all medications and reporting work side effect. Able to function and do all activities of daily living. Patient continues to drive and takes care of his finances. He is independent. Not exercising or following any particular diet. [facility] Medical History Screening for diabetes mellitus CAD (coronary artery disease) Essential (primary) hypertension Surgical History History of colonoscopy Stented coronary artery Family History Father No problems noted. Mother Hypertension Social History Housing: House Alcohol intake: current Alcohol intake frequency: holidays/special occasions only Patient Tobacco Use Status: Former Tobacco user e-Cigarette/Vaping Use: Never Used Second Hand Smoke Exposure: Yes service: No Current occupational status: retired Cognitive needs: Yes (cane) Hearing needs: No Vision needs: Yes (Glasses) Questionnaire Thrive Questionnaire Date Thrive assessed: 11/07/23 RODRIGO-7 AMB Questionnaire RODRIGO-7 Date RODRIGO - 7 assessed: 11/07/23 Source: Developed by Drs. Balta Goff, Eboni Molina, Segundo Quezada and colleagues, with an educational eric from [employer]. Physical exam (Primary Care) Vital Signs: Last Vital Signs Pulse 68 02/27/24 14:12 BP 120/64 02/27/24 14:12 Pulse Ox 96 02/27/24 14:12 Oxygen Delivery Method Room Air 02/27/24 14:12 Care Plan Goal for BP management: Blood pressure is in range. Continue current medications. BMI result Body Mass Index 29.4 Tobacco/Smoking Status: Tobacco use Status Tobacco use date assessed 02/27/24 02/27/24 14:18 Patient Tobacco Use Status Former Tobacco user 02/27/24 14:18 e-Cigarette/Vaping Use Never Used 02/27/24 14:18 Thrive Assessment: Date of Thrive Assessment Date Thrive assessed 11/07/23 02/27/24 14:18 Advance Care Planning discussion: Exists, not on file Date of discussion: 02/27/24 Who was present: Patient and his . Forms completed: Health Care Proxy and MOLST Const General: cooperative and healthy appearing Nutritional Appearance: well nourished Orientation/consciousness: patient oriented x3 Limitations: no limitations HENMT Head: Yes normal to inspection Eyes General: appearance normal, both eyes and all related structures Neck Neck: Yes normal visual inspection Chest Chest palpation & inspection: normal palpation of entire chest wall Resp Effort & Inspection: normal respiratory effort Neuro General: patient oriented x3 Assessment and Plan Assessment & Plan (1) Aortic stenosis: Code(s): I35.0 - Nonrheumatic aortic (valve) stenosis Plan: Condition is stable. Continue current medications. (2) Myeloid dysplasia: Code(s): D46.9 - Myelodysplastic syndrome, unspecified Plan: Condition stable. (3) Essential (primary) hypertension: Code(s): I10 - Essential (primary) hypertension Plan: Blood pressure is in range. Blood work done recently was reviewed. Counseling on the importance of diet and exercise done. Continue medications at same dosage. Coding Level of Care Code Est Pt Level 4 (99851) Complex EM visit Add On G2211 Diagnoses Aortic stenosis I35.0 Myeloid dysplasia D46.9 Essential (primary) hypertension I10 Additional Codes Vital Signs *Quality* - Advance Care Planning discussion: Exists, not on file ([id number])
[2024-02-27 14:12] VITALS: BP 120/64; PULSE 68; O2SAT 96; BMI 29.4
== END 2024-02-27 14:57 | disposition home or self-care (01) ==
PROVIDERS: PCP Internal Medicine; Visit Provider Internal Medicine
DX: I35.0 Nonrheumatic aortic (valve) stenosis (principal); D46.9 Myelodysplastic syndrome, unspecified; I10 Essential (primary) hypertension; Z00.00 Encounter for general adult medical examination without abnormal findings
CPT/HCPCS: 1123F; 99214; G2211

== ENCOUNTER 2024-09-01 07:50 | Outpatient (AMB) | payer MEDICARE, SELFPAY ==
--- NOTE | 2024-09-01 08:12 | MHC.PC.OV ---
Vital Signs 09/01/24 08:13 09/01/24 08:29 Height 5 ft 7 in 5 ft 7 in Weight 187 lb 6 oz BMI 29.3 BP 132/70 Blood Pressure Location Lt brachial Lt brachial Position Sitting Sitting Pulse 71 Pulse Source Pulse Oximeter Pulse Oximeter Pulse Oximetry (%) 97 Oxygen Delivery Method Room Air Room Air Intake Visit Reasons: 6mth f/u Intake Note: Patient is here to follow up on HTN, CAD. Senior Fire Protection Engineer Required: No Certified Prosthetist/Orthotist: Not Required per policy Accompanied by: Self / Same As Patient Allergies Penicillins [PENICILLINS] Adverse Reaction (Unknown, Verified 09/01/24 08:13) STOMACH UPSET Tobacco use date assessed: 09/01/24 Fall risk assessment: No Falls in past year Last assessed Fall Risk: 09/01/24 Dental Screening Dental Screen Date: 11/07/23 [facility] Medical History Screening for diabetes mellitus CAD (coronary artery disease) Essential (primary) hypertension Surgical History History of colonoscopy Stented coronary artery Family History Father No problems noted. Mother Hypertension Social History Housing: House Alcohol intake: current Alcohol intake frequency: holidays/special occasions only Patient Tobacco Use Status: Former Tobacco user e-Cigarette/Vaping Use: Never Used Second Hand Smoke Exposure: Yes service: No Current occupational status: retired Cognitive needs: Yes (cane) Hearing needs: No Vision needs: Yes (Glasses) Questionnaire Thrive Questionnaire Date Thrive assessed: 11/07/23 RODRIGO-7 AMB Questionnaire RODRIGO-7 Date RODRIGO - 7 assessed: 11/07/23 Source: Developed by Drs. Balta Goff, Eboni Molina, Segundo Quezada and colleagues, with an educational eric from [employer]. Physical exam (Primary Care) Vital Signs: Last Vital Signs Pulse 71 09/01/24 08:13 BP 132/70 09/01/24 08:13 Pulse Ox 97 09/01/24 08:13 Oxygen Delivery Method Room Air 09/01/24 08:29 BMI result Body Mass Index 29.3 Tobacco/Smoking Status: Tobacco use Status Tobacco use date assessed 09/01/24 09/01/24 08:19 Patient Tobacco Use Status Former Tobacco user 09/01/24 08:12 e-Cigarette/Vaping Use Never Used 09/01/24 08:12 Thrive Assessment: Date of Thrive Assessment Date Thrive assessed 11/07/23 09/01/24 08:12 Office Procedures Flu Questionnaire Does the patient have a severe egg allergy?: No Does the patient have severe life threatening allergies?: No Does the patient have a fever or illness today?: No Has the patient ever had Guillain-Clarence Syndrome?: No Has the patient ever had any past reaction to a flu shot?: No Immunizations Fluarix Triv 3012-3012 (PF) 45 mcg (15 mcg x 3)/0.5 mL IM syringe Performing Provider: Moses Felton MD [facility] Administered by: Sherrell Giang CMA on 09/01/24 08:30 Dose Route Admin Location Dispensed Lot Number Expiration Date NDC Slip Injector And Applicator 0.5 mL IM Left Deltoid 0.5 mL [id number] 03/22/25 95575-011-22 Conformity VIS Given Date VIS Provided VIS Publication Date 09/01/24 Single Vaccine 21 Eligibility Eligibility Date Funding Source Not [facility] Eligible 09/01/24 Private Coding Level of Care Code Est Pt Level 4 (65513) Complex EM visit Add On G2211 Diagnoses Essential (primary) hypertension I10 Aortic stenosis I35.0 CAD (coronary artery disease) I25.10 Myeloid dysplasia D46.9 Assessment & Plan Assessment & Plan (1) Essential (primary) hypertension: Code(s): I10 - Essential (primary) hypertension Category: Medical Plan: See below (2) Aortic stenosis: Code(s): I35.0 - Nonrheumatic aortic (valve) stenosis Category: Medical Plan: See below. (3) CAD (coronary artery disease): Code(s): I25.10 - Atherosclerotic heart disease of [place] coronary artery without angina pectoris Category: Medical Plan: See below. (4) Myeloid dysplasia: Code(s): D46.9 - Myelodysplastic syndrome, unspecified Category: Medical Plan: Condition is stable. Plan History of Present Illness The patient is an 84-year-old male presenting to discuss his chronic medical conditions. The patient has a history of aortic stenosis for which he was last evaluated by a dental lab technician in November. The dental lab technician advised biennial follow-ups given the current stable condition. Blood work conducted in October revealed no abnormalities, and the patient remains compliant with antihypertensive and lipid-lowering medications. The patient reports consistent management of his hypertension and hyperlipidemia with prescribed therapies. There have been no recent exacerbations or adjustments needed for these conditions. The patient has not yet received his seasonal influenza vaccination but expresses his willingness to do so today. Additionally, he reports having received pneumococcal and COVID-19 vaccines a couple of years ago. Social History - The patient resides with his . - Active in self-managing finances and overall functionality. - Avoids night driving due to discomfort. - Engages in regular medication adherence. - Reports no issues with urinary function. Review of Systems - General: Reports adequate sleep - Neurological: Denies issues - Genitourinary: Denies urinary problems Physical Exam General: Appearance normal, both eyes and all related structures Nutritional Appearance: Well nourished Orientation/consciousness: Patient oriented x3 Limitations: No limitations, but patient does not like driving at night Head: Normal to inspection Neck: Normal visual inspection Chest: Normal palpation of entire chest wall. Heart: S1 S2, soft ESM murmur best heard in the aortic area. Respiratory: Normal respiratory effort Neurology: Patient oriented x3, Results Plan - Aortic Stenosis: Continue regular monitoring as recommended by the dental lab technician. No immediate intervention needed based on stability in the recent evaluation. - Hypertension: Maintain current antihypertensive regimen. Reassess as needed. - Hyperlipidemia: Continue current cholesterol management. Reinforce importance of adherence. - Vaccinations: Administer influenza vaccine today as patient agrees. - Blood Work: Schedule fasting blood work as part of routine health maintenance. Patient was informed and verbally consented to the use of an ambient scribe for clinic note documentation during this visit. Discussion Notes I discussed with the patient the current understanding and management of his aortic stenosis, emphasizing the stable assessment by his dental lab technician earlier this year. We reviewed his blood pressure and cholesterol management, noting the absence of any recent complications and the importance of continued medication adherence. The patient showed interest in receiving his flu shot during today's visit, which I assured him would be administered. We agreed to conduct routine fasting blood work as part of his ongoing healthcare maintenance. I confirmed that all questions were answered satisfactorily. Patient Instructions - Receive the influenza vaccination today. - Continue taking prescribed medications for hypertension and hyperlipidemia. - Schedule and complete fasting blood work as part of health maintenance. - Follow up in six months, or earlier if any new symptoms develop. - Limit night driving due to discomfort. Orders: Orders Influenza [id number] Immunization Today Z23 - Encounter for immunization
[2024-09-01 08:13] VITALS: BP 132/70; PULSE 71; O2SAT 97; BMI 29.3
== END 2024-09-01 08:37 | disposition home or self-care (01) ==
PROVIDERS: PCP Internal Medicine; Visit Provider Internal Medicine
DX: I10 Essential (primary) hypertension (principal); I35.0 Nonrheumatic aortic (valve) stenosis; I25.10 Atherosclerotic heart disease of native coronary artery without angina pectoris; D46.9 Myelodysplastic syndrome, unspecified; Z23 Encounter for immunization

== ENCOUNTER → 2024-09-01 07:50 | Outpatient (BNVA) | payer MEDICARE, SELFPAY | PROVIDERS: PCP Internal Medicine; Visit Provider Internal Medicine | DX: Z23 Encounter for immunization (principal); I10 Essential (primary) hypertension; I35.0 Nonrheumatic aortic (valve) stenosis; I25.10 Atherosclerotic heart disease of native coronary artery without angina pectoris; D46.9 Myelodysplastic syndrome, unspecified | CPT/HCPCS: 90471; 90656; 99212 ==

== ENCOUNTER 2024-09-02 09:59 | Outpatient (REF) | payer MEDICARE, SELFPAY ==
[2024-09-02 10:57] LABS: Hematocrit 36.4 % (42.0-52.0); Mean Corpuscular HGB Conc 35.7 g/dl (31.0-36.0); Mean Corpuscular Hemoglobin 34.5 pg (27.0-33.0); Mean Corpuscular Volume 96.6 fL (80.0-98.0); Mean Platelet Volume 9.1 fL (9.4-12.4); Platelet Count 111 X10*3/uL (160-400); Red Blood Count 3.77 X10*6/uL (4.60-5.80); White Blood Count 4.3 X10*3/uL (4.8-10.8)
[2024-09-02 11:14] LABS: Appearance Urine Clear; Color Urine Yellow; Glucose Urine UA Negative (Negative); Leukocyte Esterase Urine Negative (Negative); Nitrite Urine Negative (Negative); Specific Gravity - Urine 1.015 (1.005-1.025); Urine Blood Negative (Negative); Urine Ketones Negative (Negative); Urine Protein Negative (Neg-Trace)
[2024-09-02 11:30] LABS: Alanine Aminotransferase 31 U/L (0-40); Alkaline Phosphatase 73 U/L (39-117); Anion Gap 11 (12-20); Aspartate Amino Transferase 47 U/L (5-37); Bilirubin Direct 0.6 mg/dL (0.0-0.5); Bilirubin Total 1.5 mg/dL (0.0-1.0); Blood Urea Nitrogen 11 mg/dL (9-16); Calcium 9.7 mg/dL (8.4-10.2); Carbon Dioxide 27 mmol/L (22-29); Chloride 108 mmol/L (96-108); Cholesterol 116 mg/dL (<200); Estimated Glomerular Filt Rate > 60; Glucose Random 92 mg/dL (60-115); HDL Cholesterol 63 mg/dL (>40); LDL Cholesterol Calculated 42 mg/dL (<100); Sodium 142 mmol/L (135-145); Total Protein 7.3 g/dL (6.5-8.0); Triglycerides 56 mg/dL (<150)
== END 2024-09-02 10:00 | disposition home or self-care (01) ==
LOC: HO.LAB 09:59
PROVIDERS: PCP Internal Medicine; Visit Provider Internal Medicine
DX: I10 Essential (primary) hypertension (principal); D46.9 Myelodysplastic syndrome, unspecified
CPT/HCPCS: 36415; 80048; 80061; 80076; 81003; 85027

== ENCOUNTER 2024-11-26 12:26 | Outpatient (AMB) | payer MEDICARE, SELFPAY ==
--- NOTE | 2024-11-26 12:27 | MHC.OFFVIS ---
Vital Signs 11/26/24 12:28 Height 5 ft 7 in Weight 185 lb 3.013 oz BMI 29.0 BP 110/70 Blood Pressure Location Lt brachial Position Sitting Pulse 76 Intake Visit Reasons: 1 yr s/p echo Intake Note: 1 year follow-up with ekg after echo feeling good Trimmer Buffing Wheel Required: No Allergies Penicillins [PENICILLINS] Adverse Reaction (Unknown, Verified 09/01/24 08:13) STOMACH UPSET Medication List - Last Reconciled 11/26/24 by Ant Triana MD amlodipine 2.5 mg PO DAILY aspirin 81 mg PO DAILY atorvastatin 20 mg PO DAILY enalapril maleate 10 mg PO DAILY hydrochlorothiazide 25 mg PO QAM HPI Comments Details: Paddy comes for follow-up. He has been doing very well from cardiac perspective. Denies any new cardiac symptoms. Walks without any issues. Denies any exertional chest pain or shortness of breath. Denies any orthopnea, PND, leg edema. Takes all his medications. No prolonged palpitation irregular heartbeat. No lightheadedness, syncope. [facility] Medical History Screening for diabetes mellitus CAD (coronary artery disease) Essential (primary) hypertension Surgical History History of colonoscopy Stented coronary artery Family History Father No problems noted. Mother Hypertension Social History Housing: House Alcohol intake: current Alcohol intake frequency: holidays/special occasions only Patient Tobacco Use Status: Former Tobacco user e-Cigarette/Vaping Use: Never Used Second Hand Smoke Exposure: Yes service: No Current occupational status: retired Cognitive needs: Yes (cane) Hearing needs: No Vision needs: Yes (Glasses) Review of Systems Const Denies chills, Denies fatigue, Denies fever(s), Denies frequent falls, Denies weakness, Denies weight gain and Denies weight loss ENT Denies dizziness Card Denies chest pain, Denies leg edema, Denies lightheadedness, Denies palpitations, Denies dyspnea, Denies dyspnea on exertion, Denies orthopnea and Denies other (loss of consciousness) Resp Denies cough, Denies dyspnea and Denies dyspnea on exertion GI Denies hematochezia and Denies change in stool character Musc Denies abnormal gait, Denies muscle weakness, Denies numbness, Denies radiating pain into limb and Denies tingling Neuro Denies abnormal gait, Denies dizziness, Denies frequent falls, Denies numbness, Denies tingling and Denies weakness Endo Denies fatigue and Denies palpitations Physical Exam Vital Signs: Last Vital Signs Pulse 76 11/26/24 12:28 BP 110/70 11/26/24 12:28 BMI result Body Mass Index 29.0 Const General: cooperative, comfortable, no acute distress, alert, awake and well groomed Nutritional Appearance: overweight Orientation/consciousness: patient oriented x3 Limitations: no limitations Neck Neck: Yes trachea midline, Yes supple and Yes no JVD Carotids: no bruits Chest Chest palpation & inspection: normal inspection of the chest Resp Effort & Inspection: normal respiratory effort Auscultation: clear to auscultation bilaterally Cardio Jugular venous distension: no JVD Palpation: normal PMI Rate: regular rate Rhythm: regular rhythm Heart sounds: S1 normal heart sound present, S2 normal heart sound present, Murmur heart sound present systolic early and Other heart sounds present (S4 present) Skin General skin exam: no rashes or lesions noted Neuro General: patient oriented x3 and no focal motor deficits Extrem General: Yes no clubbing, cyanosis or edema Psych Appearance: grossly normal Office Procedures EKG Details: EKG shows normal sinus rhythm with Q-waves in lead 3 and AVF suggestive of possible inferior infarct 90016-[id number], Complete Assessment & Plan Assessment & Plan (1) CAD (coronary artery disease): Code(s): I25.10 - Atherosclerotic heart disease of [place] coronary artery without angina pectoris Category: Medical Plan: CAD with prior inferior KS with no recurrent symptoms of angina. Continue aggressive medical therapy. Continue low-dose aspirin therapy for life. Blood pressure is currently well optimized. Continue current therapy. Importance of good blood pressure control was discussed. Target goal blood pressure less than 130/84. Continue statin therapy with target goal LDL less than 70 mg/dL. (2) Aortic stenosis: Code(s): I35.0 - Nonrheumatic aortic (valve) stenosis Category: Medical Plan: Aortic stenosis which clinically appears to be still mi. Will continue to monitor, follow-up echocardiogram in 1 year's time. Signs and symptoms of progressive aortic stenosis were discussed. Continue aggressive vascular risk factor modifications above. Will follow up in the clinic in 1 year's time, sooner p.r.n.. Thank you for allowing me to partake in his care Coding Level of Care Code Est Pt Level 4 (24082) Complex EM visit Add On G2211 Diagnoses CAD (coronary artery disease) I25.10 Aortic stenosis I35.0 CPT Codes EKG - CPT: 01893-Mwosynnrhbliodftm, Complete ([id number])
[2024-11-26 12:28] VITALS: BP 110/70; PULSE 76; BMI 29.0
--- OUTSIDE RECORDS SUMMARY | 2024-11-26 14:55 | XMS_ITS | Clinical Summary ---
Author Organization [facility] Address [address] [place] [address] Care Team Providers Care Sales Activity Manager Name Role Phone Unavailable Primary Care Provider Unavailabl e Social History Tobacco Use Types Packs/Day Years Used Date Smoking Tobacco: Never Assessed Sex and Gender Information Value Date Recorded Sex Assigned at Not on file Gender Identity Not on file Sexual Orientation Not on file Plan of Treatment Health Maintenance Due Date Last Done Comments DTaP/Tdap/Td Vaccines (1 - Tdap) 1960 Pneumococcal Vaccines 50+ (1 of 1 - PCV) 1991 Zoster (Shingles) Vaccine (1 of 2) 1991 RSV Vaccine 60 years and old er and Patients (1 - 1-dose 75+ series) 2016 COVID-19 Vaccine ( - 2023-2 5 season) 2024 Hepatitis B Vaccines Aged Out No long er eligible based on patient's age to complete this topic
--- OUTSIDE RECORDS SUMMARY | 2024-11-26 14:55 | XMS_ITS | Encounter Summary ---
Author Organization [facility] Address [address] [place] [address] Care Team Providers Care Tetryl Dissolver Operator Name Role Phone Unavailable Primary Care Provider Unavailabl e Reason for Visit * Reason Comments Medication Refill Encounter Details Date Type Department Care Team (Late st Contact Info) Description 07/13/2019 Refill [facility] [place] [address] Moses Felton MD Social History Tobacco Use Types Packs/Day Years Used Date Smoking Tobacco: Never Assessed Sex and Gender Information Value Date Recorded Sex Assigned at Not on file Gender Identity Not on file Sexual Orientation Not on file documented as of this encounter Plan of Treatment Not on file documented as of this encounter Visit Diagnoses Not on filedocumented in this encounter
== END 2024-11-26 13:05 | disposition home or self-care (01) ==
PROVIDERS: PCP Internal Medicine; Visit Provider Internal Medicine Cardiovascular Disease
DX: I25.10 Atherosclerotic heart disease of native coronary artery without angina pectoris (principal); I35.0 Nonrheumatic aortic (valve) stenosis
CPT/HCPCS: 93010; 99214; G2211

== ENCOUNTER → 2024-11-26 12:26 | Outpatient (BNVA) | payer MEDICARE, SELFPAY | PROVIDERS: PCP Internal Medicine; Visit Provider Internal Medicine Cardiovascular Disease | DX: I25.10 Atherosclerotic heart disease of native coronary artery without angina pectoris (principal); I35.0 Nonrheumatic aortic (valve) stenosis | CPT/HCPCS: 93005; 99212 ==

== ENCOUNTER 2024-12-10 14:01 | Outpatient (AMB) | payer MEDICARE, SELFPAY ==
--- NOTE | 2024-12-10 14:11 | MHC.PC.OV ---
Vital Signs 12/10/24 14:13 Height 5 ft 7 in Weight 185 lb 3 oz BMI 29.0 BP 112/72 Blood Pressure Location Lt brachial Position Sitting Pulse 62 Pulse Source Pulse Oximeter Temp 97.4 F Temp Source Temporal Artery Scan Pulse Oximetry (%) 98 Oxygen Delivery Method Room Air Intake Visit Reasons: 3mth f/u Intake Note: Patient is here to follow up on CAD, HTN. Special Agent Secret Service Required: No Security Operations Center Analyst: Present Accompanied by: Spouse Allergies Penicillins [PENICILLINS] Adverse Reaction (Unknown, Verified 12/10/24 14:37) STOMACH UPSET Medication List - Last Reconciled 12/10/24 by Moses Felton MD amlodipine 2.5 mg PO DAILY aspirin 81 mg PO DAILY atorvastatin 20 mg PO DAILY enalapril maleate 10 mg PO DAILY hydrochlorothiazide 25 mg PO QAM Tobacco use date assessed: 12/10/24 Fall risk assessment: No Falls in past year Last assessed Fall Risk: 12/10/24 Dental Screening Dental Screen Date: 12/10/24 Did you have a dental visit in the last 12 months?: No Did you have a dental problem in the last 6 months where you did not have access to dental care?: No Was dental information given to patient?: No [facility] Medical History Screening for diabetes mellitus CAD (coronary artery disease) Essential (primary) hypertension Surgical History History of colonoscopy Stented coronary artery Family History Father No problems noted. Mother Hypertension Social History Housing: House Alcohol intake: current Alcohol intake frequency: holidays/special occasions only Patient Tobacco Use Status: Former Tobacco user e-Cigarette/Vaping Use: Never Used Second Hand Smoke Exposure: Yes service: No Current occupational status: retired Cognitive needs: Yes (cane) Hearing needs: No Vision needs: Yes (Glasses) Questionnaire PHQ-9 Over the last 2 weeks, how often have you been bothered by any of the following problems? 1. Little interest or pleasure in doing things: not at all 2. Feeling down, depressed, or hopeless: not at all 3. Trouble falling or staying asleep, or sleeping too much: not at all 4. Feeling tired or having little energy: not at all 5. Poor appetite or overeating: not at all 6. Feeling bad about yourself - or that you are a failure or have let yourself or your family down: not at all 7. Trouble concentrating on things, such as reading the newspaper or watching television: not at all 8. Moving or speaking so slowly that other people could have noticed. Or the opposite - being so fidgety or restless that you have been moving around a lot more than usual: not at all 9. Thoughts that you would be better off or of hurting yourself in some way: not at all Total score: 0 Depression Screening Interpretation: Negative Depression Screening Done: Yes Source: Developed by Drs. Balta Goff, Eboni Molina, Segundo Quezada and colleagues, with an educational eric from [employer]. Thrive Questionnaire Date Thrive assessed: 12/10/24 I am a: Patient What is your living situation today?: I have a steady place to live Within the past 12 months, did the food you bought not last and you didn't have the money to get more?: Never true Within the past 12 months, did you worry whether your food would run out before you got money to buy more?: Never true Do you have trouble paying for medicines?: No Do you have trouble getting transportation to medical appointments?: No Do you have trouble paying your heating and electricity bill?: No Do you have trouble taking care of your child, family member or friend?: No Do you have trouble with day-to-day activities such as bathing, preparing meals, shopping, managing finances, etc.?: No Are you currently unemployed and looking for a job?: No Are you interested in more education?: No Please select the resources that you would like help with: None Currently or been in a relationship where the following occur: No concerns reported THRIVE Score: 0 AUDIT C Alcohol Use Questionnaire (AUDIT-C) 1. How often do you have a drink containing alcohol?: Monthly or less 2. How many drinks containing alcohol do you have on a typical day when you are drinking?: 1 or 2 Total Score: 1 RODRIGO-7 AMB Questionnaire RODRIGO-7 Date RODRIGO - 7 assessed: 12/10/24 Feeling nervous, anxious, or on edge: 0 = Not at all Not being able to stop or control worryin = Not at all Worrying too much about different things: 0 = Not at all Trouble relaxin = Not at all Being so restless that it is hard to sit still: 0 = Not at all Becoming easily annoyed or irritable: 0 = Not at all Feeling afraid as if something awful might happen: 0 = Not at all Total RODRIGO-7 score (0-4 normal; 5-9 mild; 10-14 moderate; 15-21 severe): 0 Source: Developed by Drs. Balta Goff, Eboni Molina, Segundo Quezada and colleagues, with an educational eric from [employer]. Physical exam (Primary Care) Vital Signs: Last Vital Signs Temp 97.4 F 12/10/24 14:13 Pulse 62 12/10/24 14:13 BP 112/72 12/10/24 14:13 Pulse Ox 98 12/10/24 14:13 Oxygen Delivery Method Room Air 12/10/24 14:13 Care Plan Goal for BP management: BP is stable, continue current medications BMI result Body Mass Index 29.0 Tobacco/Smoking Status: Tobacco use Status Tobacco use date assessed 12/10/24 12/10/24 14:18 Patient Tobacco Use Status Former Tobacco user 12/10/24 14:18 e-Cigarette/Vaping Use Never Used 12/10/24 14:18 PHQ-9: PHQ-9 Score PHQ-9: Total score 0 12/10/24 14:18 Depression Screening Interpretation: Negative Thrive Assessment: Date of Thrive Assessment Date Thrive assessed 12/10/24 12/10/24 14:18 Currently or been in a relationship where the following occur: No concerns reported Advance Care Planning discussion: Exists, not on file Date of discussion: 12/10/24 Who was present: Patient, Wige Forms completed: Health Care Proxy Time spent: 1-15 minutes, not on file Actual minutes spent: 5 Coding Level of Care Code Est Pt Level 4 (29136) Complex EM visit Add On G2211 Diagnoses Essential (primary) hypertension I10 Myeloid dysplasia D46.9 Additional Codes Vital Signs *Quality* - Advance Care Planning discussion: Exists, not on file ([id number]) Vital Signs *Quality* - Time spent: 1-15 minutes, not on file ([id number]) Assessment & Plan Assessment & Plan (1) Essential (primary) hypertension: Code(s): I10 - Essential (primary) hypertension Category: Medical Plan: BP in range. 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 According to the patient, he and his experienced flu symptoms a week following receipt of a flu vaccine, an occurrence noted during the winter. His blood work, performed in August, showed normal glucose, cholesterol, and renal function levels. During the visit, the patient stated he did not require any medication refills, although he did mention receiving excessive calls about refills leading to surplus medications. Social History - The patient has been for 56 years. - The patient has five children, but details about their health or proximity were not discussed at length. - He reported being able to drive himself for errands around the town, though he avoids driving at night due to discomfort with new car lights. - There was a discussion about advanced directives and the patient's daughter serving as his healthcare proxy. Review of Systems - General: Reports feeling good in general. - Neurological: Reports no issues with sleeping. Denies experiencing halos around lights at night. - Genitourinary: Denies any trouble with urination. Physical Exam General: Appearance normal, both eyes and all related structures Nutritional Appearance: Skinnier, trying to be healthy Orientation/consciousness: Patient oriented x3 Limitations: No limitations Head: Normal to inspection Neck: Normal visual inspection Chest: Normal palpation of entire chest wall Respiratory: Normal respiratory effort Neurology: Patient oriented x3 Results - Labs: Previous blood work from August shows normal glucose, cholesterol, and kidney function. Plan I will perform a wellness check every six months to monitor the patient's general health. No medication changes are needed presently due to the patient having excess due to frequent refill calls. I discussed the significance of maintaining updated advanced directives and recognized his daughter as his healthcare proxy. I acknowledged the flu-like symptoms post-vaccination, reinforcing that such immune responses can occasionally happen. The patient is in stable condition with normal lab results, and no immediate health issues were highlighted. Patient was informed and verbally consented to the use of an ambient scribe for clinic note documentation during this visit. Discussion Notes During the conversation, I reviewed the patient's recent experience with flu-like symptoms following his flu vaccination. I reassured him that such reactions are occasionally possible. I verified the normal lab results conducted in August and confirmed no need for immediate medication refills because of the surplus caused by frequent pharmacy calls. I confirmed the significance of keeping his advanced directives current and acknowledged his comfort with assigning his daughter as the healthcare proxy. We agreed on a routine follow-up in six months to ensure continued good health. Patient Instructions - Continue to observe general health and report any new symptoms. - Maintain current medications with no new refills required unless necessary. - Regularly update advanced directives and discuss preferences with the healthcare proxy. - It may be beneficial to limit evening driving and take extra care with new car lights. - Attend follow-up wellness visits every six months.
[2024-12-10 14:13] VITALS: BP 112/72; PULSE 62; TEMP 36.3; O2SAT 98; BMI 29.0
--- OUTSIDE RECORDS SUMMARY | 2024-12-10 16:44 | XMS_ITS | Encounter Summary ---
Author Organization [facility] Address [address] [place] [address] Care Team Providers Care Neuropsychology Division Chief Name Role Phone Unavailable Primary Care Provider Unavailabl e Reason for Visit * Reason Comments Medication Refill Encounter Details Date Type Department Care Team (Late st Contact Info) Description 07/13/[address] [facility] [place] [address] Moses Felton MD Social History Tobacco Use [...]
--- OUTSIDE RECORDS SUMMARY | 2024-12-10 16:44 | XMS_ITS | Clinical Summary ---
Author Organization [facility] Address [address] [place] [address] Care Team Providers Care Relationship Banker Name Role Phone Unavailable Primary Care Provider [...]
== END 2024-12-10 14:31 | disposition home or self-care (01) ==
LOC: HO.HMCH 14:02
PROVIDERS: PCP Internal Medicine; Visit Provider Internal Medicine
DX: I10 Essential (primary) hypertension (principal); D46.9 Myelodysplastic syndrome, unspecified; Z00.00 Encounter for general adult medical examination without abnormal findings

== ENCOUNTER → 2024-12-10 14:01 | Outpatient (BNVA) | payer MEDICARE, SELFPAY | PROVIDERS: PCP Internal Medicine; Visit Provider Internal Medicine | DX: I10 Essential (primary) hypertension (principal); D46.9 Myelodysplastic syndrome, unspecified | CPT/HCPCS: 99212 ==

== ENCOUNTER 2025-06-17 13:38 | Outpatient (AMB) | payer MEDICARE, SELFPAY ==
--- NOTE | 2025-06-17 13:44 | A.OFFPC_ITS ---
Vital Signs 06/17/25 13:46 Height 5 ft 7 in Weight 178 lb 6 oz BMI 27.9 BP 110/60 Blood Pressure Location Lt brachial Position Sitting Pulse 78 Pulse Source Pulse Oximeter Temp 97.3 F Temp Source Temporal Artery Scan Pulse Oximetry (%) 98 Oxygen Delivery Method Room Air Intake Visit Reasons: annual exam /6mth f/u - see comments Intake Note: Patient is here today for a physical. Boat Canvas Maker Installer Required: No Quality Systems Manager: Present Accompanied by: Spouse Allergies Penicillins (PENICILLINS) Adverse Reaction (Unknown, Verified 06/17/25 14:20) STOMACH UPSET Medication List - Last Reconciled 06/17/25 by Moses Felton MD amlodipine 2.5 mg PO DAILY aspirin 81 mg PO DAILY atorvastatin 20 mg PO DAILY enalapril maleate 10 mg PO DAILY hydrochlorothiazide 25 mg PO QAM Tobacco use date assessed: 06/17/25 Fall risk assessment: No Falls in past year Last assessed Fall Risk: 06/17/25 Dental Screening Dental Screen Date: 12/10/24 [facility] Medical History Screening for diabetes mellitus CAD (coronary artery disease) Essential (primary) hypertension Surgical History History of colonoscopy (~06/18/19) Stented coronary artery Family History Father No problems noted. Mother Hypertension Social History Housing: House Alcohol intake: current Alcohol intake frequency: holidays/special occasions only Patient Tobacco Use Status: Former Tobacco user e-Cigarette/Vaping Use: Never Used Second Hand Smoke Exposure: Yes service: No Current occupational status: retired Cognitive needs: Yes (cane) Hearing needs: No Vision needs: Yes (Glasses) Questionnaire PHQ-9 Over the last 2 weeks, how often have you been bothered by any of the following problems? 1. Little interest or pleasure in doing things: not at all 2. Feeling down, depressed, or hopeless: not at all 3. Trouble falling or staying asleep, or sleeping too much: not at all 4. Feeling tired or having little energy: not at all 5. Poor appetite or overeating: not at all 6. Feeling bad about yourself - or that you are a failure or have let yourself or your family down: not at all 7. Trouble concentrating on things, such as reading the newspaper or watching television: not at all 8. Moving or speaking so slowly that other people could have noticed. Or the opposite - being so fidgety or restless that you have been moving around a lot more than usual: not at all 9. Thoughts that you would be better off or of hurting yourself in some way: not at all Total score: 0 Depression Screening Interpretation: Negative Depression Screening Done: Yes Source: Developed by Drs. Balta Goff, Eboni Molina, Segundo Quezada and colleagues, with an educational eric from [employer] Thrive Questionnaire Date Thrive assessed: 12/10/24 I am a: Patient What is your living situation today?: I have a steady place to live Within the past 12 months, did the food you bought not last and you didn't have the money to get more?: I choose not to answer this question Within the past 12 months, did you worry whether your food would run out before you got money to buy more?: I choose not to answer this question Do you have trouble paying for medicines?: No Do you have trouble getting transportation to medical appointments?: No Do you have trouble paying your heating and electricity bill?: No Do you have trouble taking care of your child, family member or friend?: No Do you have trouble with day-to-day activities such as bathing, preparing meals, shopping, managing finances, etc.?: No Are you currently unemployed and looking for a job?: No Are you interested in more education?: No Please select the resources that you would like help with: None Currently or been in a relationship where the following occur: I choose not to answer THRIVE Score: 0 AUDIT C Alcohol Use Questionnaire (AUDIT-C) 1. How often do you have a drink containing alcohol?: Never Total Score: 0 RODRIGO-7 AMB Questionnaire RODRIGO-7 Date RODRIGO - 7 assessed: 12/10/24 Feeling nervous, anxious, or on edge: 0 = Not at all Not being able to stop or control worryin = Not at all Worrying too much about different things: 0 = Not at all Trouble relaxin = Not at all Being so restless that it is hard to sit still: 0 = Not at all Becoming easily annoyed or irritable: 0 = Not at all Feeling afraid as if something awful might happen: 0 = Not at all Total RODRIGO-7 score (0-4 normal; 5-9 mild; 10-14 moderate; 15-21 severe): 0 Source: Developed by Drs. Balta Goff, Eboni Molina, Segundo Quezada and colleagues, with an educational eric from [employer] Physical exam (Primary Care) Vital Signs: Last Vital Signs Temp 97.3 F 06/17/25 13:46 Pulse 78 06/17/25 13:46 BP 110/60 06/17/25 13:46 Pulse Ox 98 06/17/25 13:46 Oxygen Delivery Method Room Air 06/17/25 13:46 BMI result Body Mass Index 27.9 Tobacco/Smoking Status: Tobacco use Status Tobacco use date assessed 06/17/25 06/17/25 13:50 Patient Tobacco Use Status Former Tobacco user 06/17/25 13:50 e-Cigarette/Vaping Use Never Used 06/17/25 13:50 PHQ-9: PHQ-9 Score PHQ-9: Total score 0 06/17/25 14:17 Depression Screening Interpretation: Negative Thrive Assessment: Date of Thrive Assessment Date Thrive assessed 12/10/24 06/17/25 13:50 Currently or been in a relationship where the following occur: I choose not to answer Coding Level of Care Code Est Pt Prev Care >65y(50211) Diagnoses Essential (primary) hypertension I10 Assessment & Plan Assessment & Plan (1) Essential (primary) hypertension: Code(s): I10 - Essential (primary) hypertension Category: Medical Plan: BP in range, continue meds at same dosage. Plan History of Present Illness - The patient is an 85-year-old male presenting for a physical examination and preventative care. - Hypertension: The patient is currently taking amlodipine and other blood pressure medications, with blood pressure reported as well-controlled. - Hyperlipidemia: The patient is on a statin for cholesterol management. - Preventative care: The patient received an influenza vaccination last week without any adverse reactions. - Medication adherence: The patient confirms taking all prescribed medications and does not require any refills at this time. Social History - The patient enjoys watching soccer and is aware of upcoming events such as the World Cup. - The patient drives but prefers not to drive at night. Review of Systems - General: Denies any pain. - Sleep: Reports good sleep but occasionally wakes up at night due to thoughts. Physical Exam General: Cooperative and healthy appearing Nutritional Appearance: Well nourished Orientation/consciousness: Patient oriented x3 Limitations: No limitations Head: Normal to inspection General: Appearance normal, both eyes and all related structures Neck: Normal visual inspection Chest: Normal palpation of entire chest wall Respiratory: N ormal respiratory effort Neurology: Patient oriented x3, no issues with sleep reported, no daytime naps. Results - Labs: Blood work including cholesterol and prostate-specific antigen to be repeated. Plan - Repeat blood work to assess cholesterol levels and prostate health, with instructions to fast before the test. - Continue current medications for hypertension and hyperlipidemia as they are effective. - Follow up in six months for routine evaluation. Discussion Notes I discussed with the patient the importance of repeating blood work to monitor cholesterol and prostate health. We reviewed the need to fast before the test and the availability of membership manager lab hours. The patient was advised to continue current medications and to return for follow-up in six months. Patient Instructions - Fast after midnight before the blood test, only water or black coffee is allowed. - Continue taking all prescribed medications as directed. - Schedule a follow-up appointment in six months. Orders: Orders Lipid Panel Today I10 - Essential (primary) hypertension Liver Panel Today I10 - Essential (primary) hypertension Thyroid Stimulating Hormone Today I10 - Essential (primary) hypertension UA and rflx microscopic Today I10 - Essential (primary) hypertension Basic Metabolic Panel Today I10 - Essential (primary) hypertension Complete Blood Count no Diff Today I10 - Essential (primary) hypertension
[2025-06-17 13:46] VITALS: BP 110/60; PULSE 78; TEMP 36.3; O2SAT 98; BMI 27.9
--- OUTSIDE RECORDS SUMMARY | 2025-06-17 18:11 | XMS_ITS | Clinical Summary ---
Author Organization [facility] Address [address] [place] [address] Care Team Providers Care Floor Sanding Machine Operator Name Role Phone Unavailable Primary Care Provider Unavailabl e Social History Tobacco Use Types Packs/Day Years Used Date Smoking Tobacco: Never Assessed Sex and Gender Information Value Date Recorded Sex Assigned at Not on file Legal Sex Male 4:29 PM EDT Gender Identity Not on file Sexual Orientation Not on file Plan of Treatment Health Maintenance Due Date Last Done Comments Advance Care Planning 1940 DTaP/Tdap/Td Vaccines (1 - Tdap) 1960 Pneumococcal Vaccines 50+ (1 of 1 - PCV) 1991 Zoster (Shingles) Vaccine (1 of 2) 1991 RSV Vaccine 60 years and old er and Patients (1 - 1-dose 75+ series) 2016 COVID-19 Vaccine (2023-2 5 season) 2025 Hepatitis B Vaccines Aged Out No long er eligible based on patient's age to complete this topic
--- OUTSIDE RECORDS SUMMARY | 2025-06-17 18:11 | XMS_ITS | Encounter Summary ---
Author Organization [facility] Address [address] [place] [address] Care Team Providers Care Gum Remover Name Role Phone Unavailable Primary Care Provider Unavailabl e Reason for Visit * Reason Comments Medication Refill Encounter Details Date Type Department Care Team (Late st Contact Info) Description 07/13/[address] [address] Moses Felton MD [address] [place] [id number] Social History Tobacco Use Types Packs/Day Years [...]
== END 2025-06-17 14:21 | disposition home or self-care (01) ==
LOC: HO.HMCH 13:39
PROVIDERS: PCP Internal Medicine; Visit Provider Internal Medicine
DX: I10 Essential (primary) hypertension (principal); Z00.00 Encounter for general adult medical examination without abnormal findings

== ENCOUNTER → 2025-06-17 13:38 | Outpatient (BNVA) | payer MEDICARE, SELFPAY | PROVIDERS: PCP Internal Medicine; Visit Provider Internal Medicine | DX: Z00.00 Encounter for general adult medical examination without abnormal findings (principal); I10 Essential (primary) hypertension; Z87.891 Personal history of nicotine dependence; I25.10 Atherosclerotic heart disease of native coronary artery without angina pectoris | CPT/HCPCS: 99397 ==

== ENCOUNTER 2025-08-03 09:27 | Outpatient (REF) | payer MEDICARE, SELFPAY ==
[2025-08-03 10:03] LABS: Hematocrit 37.1 % (42.0-52.0); Hemoglobin 13.0 g/dl (14.0-18.0); Mean Corpuscular HGB Conc 35.0 g/dl (31.0-36.0); Mean Corpuscular Hemoglobin 33.8 pg (27.0-33.0); Mean Corpuscular Volume 96.4 fL (80.0-98.0); NRBC Abs Auto 0.000 X10*3/uL (0.0-0.012); NRBC Pct Auto 0.0 /100WBC (0.0-0.2); Platelet Count 116 X10*3/uL (160-400); Red Blood Count 3.85 X10*6/uL (4.60-5.80); White Blood Count 4.4 X10*3/uL (4.8-10.8)
[2025-08-03 10:55] LABS: Alanine Aminotransferase 29 U/L (0-40); Albumin Level 4.1 g/dL (3.5-5.0); Alkaline Phosphatase 73 U/L (39-117); Anion Gap 12 (12-20); Aspartate Amino Transferase 43 U/L (5-37); Blood Urea Nitrogen 13 mg/dL (9-16); Calcium 9.0 mg/dL (8.4-10.2); Carbon Dioxide 23 mmol/L (22-29); Chloride 111 mmol/L (96-108); Cholesterol 118 mg/dL (<200); Estimated Glomerular Filt Rate > 60; HDL Cholesterol 63 mg/dL (>40); Potassium 3.6 mmol/L (3.3-5.1); Sodium 142 mmol/L (135-145); Total Protein 7.1 g/dL (6.5-8.0); Triglycerides 53 mg/dL (<150)
[2025-08-03 11:20] LABS: Thyroid Stimulating Hormone 3.41 uIU/mL (0.32-4.0)
== END 2025-08-03 09:28 | disposition home or self-care (01) ==
LOC: HO.LAB 09:27
PROVIDERS: PCP Internal Medicine; Visit Provider Internal Medicine
DX: I10 Essential (primary) hypertension (principal)
CPT/HCPCS: 36415; 80048; 80061; 80076; 84443; 85027

== ENCOUNTER 2025-08-06 14:21 | Outpatient (REF) | payer MEDICARE, SELFPAY ==
[2025-08-06 14:51] LABS: Appearance Urine Clear; Glucose Urine UA Negative (Negative); PH 5.5 (5.0-9.0); Specific Gravity - Urine 1.015 (1.005-1.025)
== END 2025-08-06 14:22 | disposition home or self-care (01) ==
LOC: HO.LNP 14:21
PROVIDERS: Visit Provider Internal Medicine
DX: I10 Essential (primary) hypertension (principal)
CPT/HCPCS: 81003